=== PATIENT | female | born 1975 | race Caucasian/White ===

== ENCOUNTER 2017-03-27 04:57 | Emergency (ER) | payer SELFPAY ==
[2017-03-27 05:02] VITALS: BP 116/86; BMI 38.7
--- NOTE | 2017-03-27 05:34 | ED.ABDFE ---
HPI - Time seen Time seen: 05:25 - PCP Primary Care Physician: nfd - Complaint Chief Complaint Doctors Comments: RLQ ABDOMINAL PAIN WITH NAUSEA AND VOMITING TIMES 8 HOURS. NO FEVER. PAIN GETTING WORSE. NO DIARRHEA. Chief Complaint:: rlq pain, n/v for the last 8 hours - Nurses notes reviewed Nurses Notes Review: Yes - Source History Provided: Patient - Mode of arrival Mode of Arrival: Ambulatory - Timing Onset of Chief Complaint: 03/26/17 Came on: Suddenly - Duration Duration: Constant Duration: Hours - Location Location: RLQ - Severity Severity: Moderate - Quality Quality: Sharp - Context Onset: Suddenly History of: None - Modifying Worsening Factors: Nothing Improving Factors: Nothing - Associated signs and symptoms Associated Signs and Symptoms: Nausea, Vomiting PMH - PMH Past Medical History: Yes Past Medical History: Asthma, Depression, Diabetes, Hypertension Past Medical History Comment: restless legs Past Surgical History: Yes Surgical History: Cholecystectomy Past Surgical History Comment: partial hysterectomy - Family History History of Family Medical Conditions: Yes Family Medical History: Diabetes Mellitus, Hypertension - Social History Does patient currently use any type of tobacco product: No Have you used tobacco products in the last 12 months: No Type of Tobacco Use: None Does any household member use tobacco: No Alcohol Use: None Do you use any recreational Drugs:: No Lives With: Spouse Lives Where: Home - infectious screening Have you traveled outside the country in the last 6 months?: No Isolation: Standard ROS - Review of Systems Constitutional: Weakness, Fatigue. negative: See HPI, Fever Eyes: No Symptoms Reported. negative: Eye Pain, Discharge ENTM: No Symptoms Reported. negative: Ear Pain, Nose Discharge, Nose Congestion , Throat Pain Respiratoy: No Symptoms Reported. negative: Non-Productive Cough, Short of Breath, Wheezing, Hemoptysis Cardiovascular: No Symptoms Reported. negative: Chest Pain, Palpitations Gastrointestinal/Abdominal: Abdominal Pain, Nausea, Vomiting. negative: Constipation, Diarrhea Genitourinary: No Symptoms Reported, Discharge. negative: Dysuria, Frequency, Hematuria Neurological: Weakness. negative: Headache, Dizziness Musculoskeletal: No Symptoms Reported Integumentary: Rash (EXTREMITIES, CHRONIC), Itching Hematologic/Lymphatic: No Symptoms Reported Endocrine: No Symptoms Reported All Other Systems: Reviewed and Negative PE - Vital Signs Vitals: Temperature 97.9 F Pulse Rate 80 Respiratory Rate 16 Blood Pressure 116/86 O2 Sat by Pulse Oximetry 97 - General Limitations: No Limitations General Appearance: Alert - Head Head Exam: Normal Inspection - Eyes Eye exam: Normal Appearance - ENT ENT Exam: Normal External Ear Exam - Neck Neck Exam: Normal Inspection - Chest Chest Inspection: Symmetric Chest Wall Rise - Respiratory Respiratory Exam: Normal Lung Sounds Bilat Respiratory Exam: Bilateral Clear to Auscultation - Cardiovascular Cardiovascular Exam: Regular Rate, Normal Rhythm, Normal Heart Sounds - Abdominal Exam Abdominal Exam: Normal Bowel Sounds, Soft, Tenderness Abdominal Tenderness: RLQ, Suprapubic - Rectal Rectal Exam: Deferred - Back Back Exam: Normal Inspection - Extremeties Extremities Exam: Normal Inspection - External Exam: Female: Deferred : Bimanual Exam (female): Deferred - Neurologic Neurological Exam: Alert - Psychiatric Psychiatric Exam: Normal Affect, Normal Mood - Skin Skin Exam: Rash (UPPER ECTREMITY), Erythema MDM - Differential Diagnosis Differential Diagnosis- Considerations may include:: Appendicitis, Bowel Obstruction, Diverticular disease, Gastritus/PUD, Gastroenteritis, Pancreatitis , Urinary tract infection, Urolithiasis Course - Treatment Treatment: PATIENT LEFT AFTER EXAM. SHE DID NOT WISH TO DO LABS/ TEST RECOMMENDED. - Diagnosis Discharge Problem: Abdominal pain Qualifiers: Abdominal location: right lower quadrant Qualified Code(s): R10.31 - Right lower quadrant pain - Discharge Plan Condition: Stable - Follow ups/Referrals Follow ups/Referrals: NFD,None [Primary Care Provider] - 3 days - Instructions
== END 2017-03-27 05:30 | disposition left against medical advice (07) ==
LOC: ER 04:57
DX: R10.31 Right lower quadrant pain (principal)
CPT/HCPCS: 99281; 99282